=== PATIENT | female | born 1990 | race Caucasian/White ===

== ENCOUNTER 2018-05-02 01:04 | Emergency (ER) | payer OTHER | END 2018-05-02 06:44 | disposition home or self-care (01) | LOC: FTE 01:04 | DX: O99.512 Diseases of the respiratory system complicating pregnancy, second trimester (principal); J06.9 Acute upper respiratory infection, unspecified; R05 Cough; Z3A.17 17 weeks gestation of pregnancy | CPT/HCPCS: 99283 ==

== ENCOUNTER 2018-09-30 23:28 | Inpatient (IN) | payer OTHER ==
[2018-10-01 00:22] LABS: ADD UMIC YES; UR ASCORBIC ACID NEGATIVE (NEGATIVE); UR BACTERIA FEW /HPF (NONE SEEN); UR BILIRUBIN (Dip) NEGATIVE (NEGATIVE); UR BLOOD (Dip) NEGATIVE (NEGATIVE); UR CLARITY SLIGHTLY CLOUDY (CLEAR); UR COLOR AMBER (YELLOW); UR GLUCOSE (Dip) NEGATIVE (NEGATIVE); UR KETONES (Dip) NEGATIVE (NEGATIVE); UR LEUKOCYTE ESTERASE (Dip) TRACE Leu/ul (NEGATIVE); UR MUCUS MODERATE /HPF (NONE SEEN); UR NITRITE (Dip) NEGATIVE (NEGATIVE); UR RBC 1 /HPF (0-5); UR SQUAMOUS EPITHELIAL CELL FEW /HPF (FEW); UR TOTAL PROTEIN (Dip) 1+ mg/dl (NEGATIVE); UR UROBILINOGEN (Dip) 2+ mg/dL (NEGATIVE); UR WBC 7 /HPF (0-5)
[2018-10-01] MEDS ORDERED: LACTATED RINGER'S 1,000 ML IV (00:25)
[2018-10-01] MEDS ORDERED: CARBOPROST 250 MCG INJ IM ×2 (00:30→04:00)
[2018-10-01] MEDS ORDERED: OXYTOCIN 30 UNITS/LR 500 ML IV ×2 (00:30→04:00)
[2018-10-01] MEDS ORDERED: METHYLERGONOVINE 0.2 MG INJ IM (00:30)
[2018-10-01] MEDS ORDERED: IBUPROFEN 600 MG TAB PO (00:30)
[2018-10-01] MEDS ORDERED: MISOPROSTOL 200 MCG TAB PR ×2 (00:30→04:00)
[2018-10-01] MEDS ORDERED: BUTORPHANOL 2 MG INJ IV (00:30)
[2018-10-01 01:08] LABS: ADD MAN DIFF? NO
[2018-10-01 01:14] LABS: WHITE BLOOD COUNT 10.7 10^3/ul (4.8-10.8)
[2018-10-01 01:14] LABS: BASOPHILS % 0.2 % (0.0-2.0); EOSINOPHILS # 0.1 10^3/ul (0.0-0.5); EOSINOPHILS % 0.7 % (0.0-7.0); HEMATOCRIT 36.1 % (37.0-47.0); HEMOGLOBIN 11.6 g/dl (12.0-16.0); LYMPHOCYTES # 1.7 10^3/ul (0.8-2.9); LYMPHOCYTES % 16.2 % (15.0-51.0); MEAN CORPUSCULAR HEMOGLOBIN 26.8 pg (29.0-33.0); MEAN CORPUSCULAR HGB CONC 32.1 g/dl (32.0-37.0); MEAN CORPUSCULAR VOLUME 83.4 fl (82.0-101.0); MEAN PLATELET VOLUME 11.4 fl (7.4-10.4); MONOCYTE # 0.6 10^3/ul (0.3-0.9); MONOCYTES % 5.3 % (0.0-11.0); NEUTROPHIL # 8.3 10^3/ul (1.6-7.5); NEUTROPHILS % 77.1 % (39.0-77.0); PLATELET COUNT 229 10^3/UL (140-415); RED BLOOD COUNT 4.33 10^6/ul (4.20-5.40); RED CELL DISTRIBUTION WIDTH 15.7 % (11.5-14.5)
[2018-10-01] MEDS: LACTATED RINGER'S 1,000 ML IV (01:17)
[2018-10-01 01:34] LABS: ALANINE AMINOTRANSFERASE 14 IU/L (13-69); ALBUMIN 3.5 g/dl (3.3-4.9); ALBUMIN/GLOBULIN RATIO 1.16; ALKALINE PHOSPHATASE 263 IU/L (42-121); ANION GAP 8 (5-13); ASPARTATE AMINO TRANSFERASE 20 IU/L (15-46); BILIRUBIN,INDIRECT 0.3 mg/dl (0-1.1); BILIRUBIN,TOTAL 0.3 mg/dl (0.2-1.3); BLOOD UREA NITROGEN 13 mg/dl (7-20); CALCIUM 9.3 mg/dl (8.4-10.2); CARBON DIOXIDE 23 mmol/L (21-31); CHLORIDE 106 mmol/L (97-110); CREATININE 0.49 mg/dl (0.44-1.00); Estimated GFR > 60 mL/min (>60); GLUCOSE 79 mg/dl (70-220); POTASSIUM 4.1 mmol/L (3.5-5.1); SODIUM 137 mmol/L (135-144); TOTAL PROTEIN 6.5 g/dl (6.1-8.1); URIC ACID 4.9 mg/dl (3.1-7.9)
[2018-10-01 01:39] LABS: PROTIME 12.2 Sec (11.9-14.9)
[2018-10-01 01:40] LABS: PARTIAL THROMBOPLASTIN TIME 27.3 Sec (23.0-35.0)
[2018-10-01] MEDS ORDERED: ONDANSETRON 4 MG INJ IV ×2 (02:00→04:00)
[2018-10-01] MEDS ORDERED: KETOROLAC 30 MG INJ IV (02:00)
[2018-10-01] MEDS ORDERED: NALOXONE (0.4 MG/ML) INJ IV (02:00)
[2018-10-01] MEDS ORDERED: HYDROmorphONE 0.5 MG/0.5 ML SYG IV ×2 (02:00)
[2018-10-01] MEDS ORDERED: FENTAnyl 2MCG/ML-ROPIV 0.2% 100 ML BAG EPI (02:00)
[2018-10-01] MEDS ORDERED: DIPHENHYDRAMINE 50 MG INJ IV (02:00)
[2018-10-01] MEDS: LIDOCAINE 0.5% (SDV) 50 ML INJ INFIL (03:02)
[2018-10-01 03:05] LABS: HEPATITIS B SURFACE ANTIGEN NEGATIVE (NEGATIVE)
[2018-10-01] MEDS: OXYTOCIN 30 UNITS/LR 500 ML IV ×3 (03:17→03:36)
[2018-10-01] MEDS ORDERED: NACL 0.9% 3 ML SYG IV (04:00)
[2018-10-01] MEDS ORDERED: ZOLPIDEM 5 MG TAB PO (04:00)
[2018-10-01] MEDS ORDERED: DIPHENHYDRAMINE 25 MG CAP PO (04:00)
[2018-10-01] MEDS ORDERED: HYDROCODONE/APAP (5/325) TAB PO (04:00)
[2018-10-01] MEDS ORDERED: morphine 2 MG INJ IV (04:00)
[2018-10-01] MEDS ORDERED: ACETAMINOPHEN 325 MG TAB PO (04:00)
[2018-10-01] MEDS: MINERAL OIL LIGHT 10 ML VIAL TOP (05:00)
[2018-10-01] MEDS: IBUPROFEN 600 MG TAB PO ×3 (05:56→17:20)
[2018-10-01] MEDS: LANOLIN 7 GM TUBE TOP (05:56)
[2018-10-01] MEDS: WITCH HAZEL/GLYCERIN PAD PR (05:56)
[2018-10-01 08:13] LABS: HEMATOCRIT 33.7 % (37.0-47.0); HEMOGLOBIN 10.6 g/dl (12.0-16.0)
[2018-10-01] MEDS: SENNA/DOCUSATE NA (8.6MG/50MG) TAB PO ×2 (09:57→20:38)
[2018-10-01] MEDS: GUAIFENESIN/DM 5ML CUP PO (14:13)
[2018-10-01 22:14] LABS: RAPID PLASMA REAGIN NONREACTIVE (NR)
[2018-10-02] MEDS: IBUPROFEN 600 MG TAB PO ×4 (00:13→17:40)
[2018-10-02] MEDS: GUAIFENESIN/DM 5ML CUP PO ×3 (00:13→21:29)
[2018-10-02] MEDS: SENNA/DOCUSATE NA (8.6MG/50MG) TAB PO ×2 (09:32→21:29)
[2018-10-03] MEDS: IBUPROFEN 600 MG TAB PO ×3 (00:20→12:00)
[2018-10-03] MEDS: SENNA/DOCUSATE NA (8.6MG/50MG) TAB PO (10:14)
== END 2018-10-03 13:30 | disposition home or self-care (01) | DRG 807 ==
LOC: OBT 23:28 → L-D 23:30 → PP1 10-01 04:52
PROC: 10E0XZZ Delivery of Products of Conception, External Approach (ICD-10-PCS; principal; 2018-10-01)
PROC: 0HQ9XZZ Repair Perineum Skin, External Approach (ICD-10-PCS; 2018-10-01)
PROC: 3E033VJ Introduction of Other Hormone into Peripheral Vein, Percutaneous Approach (ICD-10-PCS; 2018-10-01)
DX: O70.0 First degree perineal laceration during delivery (principal); Z37.0 Single live birth; Z3A.39 39 weeks gestation of pregnancy
CPT/HCPCS: 36415; 62319; 80053; 81001; 84560; 85014; 85018; 85025; 85610; 85730; 86592; 86850; 86900; 86901; 87340; 87591